=== PATIENT | female | born 1975 | race Caucasian/White ===

== ENCOUNTER 2018-08-08 04:48 | Emergency (ER) | payer BC ==
[2018-08-08 04:56] VITALS: BP 117/67
[2018-08-08] MEDS ORDERED: ACETAMINOPHEN 500 MG TAB PO ONE (05:12)
[2018-08-08] MEDS ORDERED: IBUPROFEN 200 MG TAB PO ONE (05:12)
--- NOTE | 2018-08-08 05:13 | EDPHY ---
H & P Stated Complaint: URI and generalized body aches since Monday Time Seen by Provider: 08/08/18 05:00 HPI/ROS: HPI The patient presents with cough, rhinorrhea, sore throat, headache, subjective fevers which have been present for the last 3 days. Symptoms improved briefly yesterday though have returned over the course of the evening tonight and into the morning. She has not taken any medication for this. She is traveling from [place] and is unsure of any sick contacts. She did receive a flu vaccine this year. She does not have any chest pain or shortness of breath. REVIEW OF SYSTEMS 10 systems were reviewed and negative with the exception of the elements mentioned in the history of present illness. PMHx: Healthy, nonsmoker Soc Hx: Visiting from [place] PHYSICAL General Appearance: Alert, no distress Eyes: Pupils equal and round no pallor, conjunctiva injected ENT, Mouth: Mucous membranes moist, nasal mucosa is erythematous bilaterally, posterior pharynx is erythematous without exudate Respiratory: There are no retractions, lungs are clear to auscultation Cardiovascular: Regular rate and rhythm Gastrointestinal: Abdomen is soft and non-tender, no masses, bowel sounds normal Neurological: A&O, moves all extremities Skin: Warm and dry, no rashes Musculoskeletal: Neck is supple non tender Extremities: symmetrical, full range of motion Psychiatric: Patient is oriented X 3, there is no agitation Source: Patient Exam Limitations: No limitations - Personal History LMP (Females 10-55): 8-14 Days Ago Current Tetanus/Diphtheria Vaccine: Yes Current Tetanus Diphtheria and Acellular Pertussis (TDAP): Yes - Medical/Surgical History Hx Asthma: No Hx Chronic Respiratory Disease: No Hx Diabetes: No Hx Cardiac Disease: No Hx Renal Disease: No Hx Cirrhosis: No Hx Alcoholism: No Hx HIV/AIDS: No Hx Splenectomy or Spleen Trauma: No Other PMH: denies - Social History Smoking Status: Never smoked Constitutional: Initial Vital Signs Temperature (C) 36.4 C 08/08/18 04:52 Heart Rate 83 08/08/18 04:52 Respiratory Rate 16 08/08/18 04:52 Blood Pressure 117/67 08/08/18 04:52 O2 Sat (%) 94 08/08/18 04:52 O2 Delivery Mode Room Air Allergies/Adverse Reactions: No Known Allergies Allergy (Unverified 08/08/18 04:55) Home Medications: Medication Instructions Recorded Azithromycin [Zithromax] 250 mg PO DAILY #6 tab 08/08/18 Benzonatate [Tessalon Pearles (RX)] 100 mg PO TID PRN #20 cap 08/08/18 Medical Decision Making Differential Diagnosis: 42-year-old female who is healthy, visiting from out of town, presents with 3 days of myalgias, cough, rhinorrhea, sore throat. Here, she is afebrile, has normal vital signs. Posterior pharynx slightly erythematous, lungs sound clear. I suspect she is suffering from a viral URI, influenza is a consideration though she has had her flu vaccine this year. I have offered her testing, however she declines. I have instructed her to take ibuprofen, Tylenol , a decongestant. I have given her her 1st dose of these medications here. Upon her discharge he requested a prescription for Z-Jefry to taking case her symptoms did not improve. Given that she is traveling with limited access to medical care and could possibly have bronchitis which could progress to pneumonia I will prescribe this for her. - Data Points Medications Given: Discontinued Medications Acetaminophen (Tylenol) 1,000 mg PO EDNOW ONE Stop: 08/08/18 05:13 Last Admin: 08/08/18 05:29 Dose: 1,000 mg Guaifenesin (Mucinex) 600 mg PO EDNOW ONE Stop: 08/08/18 05:31 Last Admin: 08/08/18 05:28 Dose: 600 mg Ibuprofen (Motrin) 400 mg PO EDNOW ONE Stop: 08/08/18 05:13 Last Admin: 08/08/18 05:28 Dose: 400 mg Departure - Departure Disposition: Home, Routine, Self-Care Clinical Impression: Upper respiratory infection Qualifiers: URI type: unspecified viral URI Qualified Code(s): J06.9 - Acute upper respiratory infection, unspecified Condition: Good Instructions: Upper Respiratory Infection (ED) Additional Instructions: I recommend you take ibuprofen 400 mg with acetaminophen 1000 mg every 6 hr around the clock until your symptoms improved. You can take Mucinex or Sudafed which is available [id number] for congestion. I have given you a prescription for your cough. Please return to the ER if your worse in any way. Referrals: Patient,NotPresent [Unknown] - As per Instructions Prescriptions: Azithromycin [Zithromax] 250 mg PO DAILY #6 tab Benzonatate [Tessalon Pearles (RX)] 100 mg PO TID PRN #20 cap PRN Reason: Cough, Mild
[2018-08-08] MEDS ORDERED: guaiFENesin 600 MG TAB.ER PO ONE (05:30)
== END 2018-08-08 05:33 | disposition home or self-care (01) ==
DX: J06.9 Acute upper respiratory infection, unspecified (principal)